=== PATIENT | male | born 2005 | race Caucasian/White ===

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

== ENCOUNTER 2024-04-14 11:06 | Emergency (ER) | payer OTHER, SELFPAY ==
--- NOTE | ~2024-04-14 | XR_ITS ---
EXAMINATION: XR ankle LT min 3V DATE: 04/14/2024 11:40 INDICATION: Left ankle injury and pain. TECHNIQUE: 4 views of left ankle were obtained. COMPARISON: None. FINDINGS: Alignment is normal. No fracture. Joint spaces are normal. IMPRESSION: 1. Normal left ankle. Reviewed, dictated and finalized at location A. CUTTER IMPRESSION: 1. Normal left ankle.
--- NOTE | ~2024-04-14 | XR_ITS ---
EXAMINATION: XR foot LT min 3V DATE: 04/14/2024 11:40 INDICATION: Left foot injury and pain. TECHNIQUE: 4 views of left foot were obtained. COMPARISON: None. FINDINGS: Alignment is normal. No fracture. Joint spaces are normal. IMPRESSION: 1. Normal left foot. Reviewed, dictated and finalized at location A. NSED LIFE AND HEALTH AGENT IMPRESSION: 1. Normal left foot.
[2024-04-14 11:22] VITALS: BP 132/56; PULSE 74; RESP 16; TEMP 37.1; O2SAT 100
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
== END 2024-04-14 12:15 | disposition home or self-care (01) ==
PROVIDERS: Emergency Provider Nurse Practitioner Family
DX: S90.02XA Contusion of left ankle, initial encounter (principal); S90.32XA Contusion of left foot, initial encounter; V00.148A Other scooter (nonmotorized) accident, initial encounter
CPT/HCPCS: 73610; 73630; 99213; G0463